=== PATIENT | male | born 1970 | race Caucasian/White ===

== ENCOUNTER 2023-08-16 08:53 | Outpatient (CLI) | payer BC, SELFPAY ==
--- OUTSIDE RECORDS SUMMARY | 2023-08-16 08:58 | XMS_ITS | Referral Summary ---
Author Organization Kathleen Address [address] [place] [id number] Care Team Providers Care [employer] Name Role Phone Harry Baird MD Primary Care Provider Cedric Asencio MD Unavailable Anne Oglesby MD Unavailable [phone] Prabhu Ivory MD Unavailable Anne Oglesby MD Unavailable Encounters Date Type Department Care Team Description 07/15/2023 Travel 07/15/2023 8:30 AM CDT Lab [facility] [address] [place] [phone] Kidney donor 06/23/2023 MyC Medical Advice [facility] [address] [place] [phone] Naida Lawler 06/02/2023 MyC Medical Advice [facility] [address] [place] [phone] Kalee Zavaleta LPN 05/24/2023 MyC Medical Advice [facility] [address] [place] [phone] Daily Briceño RN from Last 3 Months Allergies No known active allergies Medications Medication Sig Dispensed Refills Start Date End Date Status albuterol (PROAIR HFA, PROVENTIL HFA, VENTOLIN HFA) 108 (90 BASE) MCG/ACT inhalerIndications: Asthma, moderate persistent, uncomplicated Use 2 puffs before exercise and every 4-6 hours as needed for wheezing and shortness of breath 1 Inhaler 3 12/09/2014 Active Additional Information Patient not taking.Reported on 09/13/2022 fluticasone-salmete rol (ADVAIR) 250-50 MCG/ACT inhaler Inhale 1 puff into the lungs every 12 hours Active acetaminophen (TYLENOL) 325 MG tabletIndications:E ncounter for donation of kidney Take 2 tablets (650 mg) by mouth every 6 hours as needed for mild pain 100 tablet 07/27/2022 Active Additional Information Patient not taking.Reported on 09/13/2022 oxyCODONE (ROXICODONE) 5 MG tabletIndications:E ncounter for donation of kidney Take 1-2 tablets (5-10 mg) by mouth every 4 hours as needed for moderate pain 24 tablet 07/27/2022 Active Additional Information Patient not taking.Reported on 09/13/2022 senna-docusate (SENOKOT-S/PERICOLA CE) 8.6-50 MG tabletIndications:E ncounter for donation of kidney Take 1-2 tablets by mouth 2 times daily 60 tablet 1 07/27/2022 Active Additional Information Patient not taking.Reported on 11/24/2022 polyethylene glycol (MIRALAX) 17 GM/Dose powderIndications:E ncounter for donation of kidney Take 17 g by mouth daily 510 g 1 07/27/2022 Active Additional Information Patient not taking.Reported on 09/13/2022 magnesium hydroxide (MILK OF MAGNESIA) 400 MG/5ML suspensionIndicatio ns:Encounter for donation of kidney Take 30 mLs by mouth daily as needed for constipation 118 mL 1 07/27/2022 Active Additional Information Patient not taking.Reported on 09/13/2022 augmented betamethasone dipropionate (DIPROLENE AF) 0.05 % external creamIndications:Salvatore cheung donor Apply topically 2 times daily 50 g 1 08/06/2022 Active Additional Information Patient not taking.Reported on 09/13/2022 pantoprazole (PROTONIX) 20 MG EC tabletIndications:K naz donor Take 2 tablets (40 mg) by mouth daily 1 tablet 3 08/17/2022 Active Additional Information Patient not taking.Reported on 09/13/2022 benzonatate (TESSALON) 200 MG capsuleIndications: Acute cough Take 1 capsule (200 mg) by mouth 3 times daily as needed for cough 30 capsule 11/24/2022 Active Active Problems Patient Care Coordination No te Formatting of this note migh t be different from the original. January 05, 2022 4:29 PM - Lourdes Arroyo RN: Patient's abdominal CT reviewed on 01/05/22 with the following surgeon(s) present: Lisa Suggested side for kidney for donation is RIGHT or choice. Incidental findings reviewed: none Problem Noted Date Diagnosed Date Encounter for donation of kidney 07/26/2022 Transplant donor evaluation 12/15/2021 Uncomplicated asthma 12/09/2014 Overview: Diagnosis updated by automated process. Provider to review and confirm. Gastroesophageal reflux disease without esophagi tis 12/09/2014 CARDIOVASCULAR SCREENING; LDL GOAL LESS THAN 160 10/25/2014 Resolved Problems Problem Noted Date Diagnosed Date Resolved Date Mild persistent asthma without complication 10/25/2014 12/09/2014 Overview: Diagnosis updated by automated process. Provider to review and confirm. Asthma 10/04/2014 10/25/2014 Overview: Problem list name updated by automated process. Provider to review Immunizations Name Administration Dates Next Due COVID-19 MONOVALENT 12+ (Pfizer) 02/23/2021,04/0 11/2020,05/23/2020 COVID-19 Monovalent 12+ (Pfizer 2021) 10/12/2021 Influenza Vaccine >6 months,quad, PF 12/27/2013 Pneumococcal 23 valent 10/25/2014 Social History Tobacco Use Types Packs/Day Years Used Date Smoking Tobacco: Never Smokeless Tobacco: Never Tobacco Cessation:Counseling Given: Not Answered Alcohol Use Standard Drinks/Week Comments Yes 1 (1 standard drink = 0.6 oz pur e alcohol) PHQ-2 Answer Date Recorded PHQ-2 Score 0 07/15/2022 Adolescent Education Answer Date Record ed Getting School Help Needed Not on file 11/26 Sex and Gender Information Value Date Recorded Sex Assigned at Male 12/15/2021 10:56 PM CDT Gender Identity Male 12/15/2021 10:56 PM CDT Sexual Orientation Straight 12/15/2021 10 :56 PM CDT Last Filed Vital Signs Vital Sign Reading Time Taken Comments Blood Pressure 120/71 11/24/2022 5:07 PM CDT Pulse 78 11/24/2022 5:07 PM CDT Temperature 38.2 ??C (100.7 ??F) 11/24/2022 5:07 PM C DT Respiratory Rate 20 11/24/2022 5:07 PM CDT Oxygen Saturation 98% 11/24/2022 5:07 PM CDT Inhaled Oxygen Concentration - - Weight 98.9 kg (218 lb) 01/15/2023 12:00 PM INSTRUCTIONAL TECHNOLOGY COORDINATOR Height 188 cm (6' 2) 01/15/2023 12:00 PM INSTRUCTIONAL TECHNOLOGY COORDINATOR Body Mass Index 27.99 01/15/2023 12:00 PM INSTRUCTIONAL TECHNOLOGY COORDINATOR Plan of Treatment Not on file Procedures Procedure Name Priority Date/Time Associated Diagnosis Comments URINE MICROSCOPIC EXAM Routine 07/15/2023 8:38 AM CDT Kidney donor ROUTINE UA WITH MICROSCOPIC Routine 07/15/2023 8:38 AM CDT Kidney donor ALBUMIN RANDOM URINE QUANTITATIVE Routine 07/15/2023 8:32 AM CDT Kidney donor PROTEIN RANDOM URINE Routine 07/15/2023 8:32 AM CDT Kidney donor CREATININE Routine 07/15/2023 8:29 AM CDT Kidney donor CYSTATIN C WITH GFR Routine 07/15/2023 8 :29 AM CDT Kidney donor BASIC METABOLIC PANEL Routine 09/13/2022 3:16 PM CDT Kidney donor HIV 1&2 ANTIBODY (EXTERNAL RESULT) Routine 07/05/2022 2:16 PM CDT HEPATITIS C ANTIBODY Routine 07/05/2022 2:16 PM CDT LIPID PROFILE Routine 12/31/2021 7:32 AM CDT Transplant donor evaluation COLONOSCOPY - HIM SCAN 05/01/2021 12:00 AM INSTRUCTIONAL TECHNOLOGY COORDINATOR from Last 3 Months or Most Recently Relevant to Health Maintenance Results * UA with Microscopic (07/15/2023 8:38 AM CDT) Color Urine Yellow Colorless, Straw, Light Yellow, Yellow 07/15/2023 8:40 AM CDT LABORATORY Appearance Urine Clear Clear 07/15/19 24 8:40 AM CDT LABORATORY Glucose Urine Negative Negative mg/dL 07/15/2023 8:40 AM CDT LABORATORY Bilirubin Urine Negative Negative 8:40 AM CDT LABORATORY Ketones Urine Negative Negative mg/dL 07/15/2023 8:40 AM CDT LABORATORY Specific [place] Urine 1.015 1.003 - 1.035 07/15/2023 8:40 AM CDT LABORATORY Blood Urine Negative Negative 07/15/2023 8:40 AM CDT LABORATORY pH Urine 6.0 5.0 - 7.0 07/15/2023 8:40 AM CDT LABORATORY Protein Albumin Urine Negative Negative mg/dL 07/15/2023 8:40 AM CDT LABORATORY Urobilinogen Urine 0.2 0.2, 1.0 E.U./dL 07/15/2023 8:40 AM CDT LABORATORY Nitrite Urine Negative Negative 07/15/2023 8:40 AM CDT LABORATORY Leukocyte Esterase Urine Negative Negative 07/15/2023 8:40 AM CDT LABORATORY Urine URINE SPECIMEN OBTAINED BY CLEAN CATCH PROCEDURE / Unknown Non-blood Collection / Unknown 07/15/2023 8:38 AM CDT 07/15/2023 8:38 AM CDT Prabhu Ivory MD LAB - URINE ORDERABL ES LABORATORY [facility] [place] [facility] [address] [facility] (no room number, 1st floor of clinic) [place] [address], [facility] * (ABNORMAL) Urine Microscopic Exam (07/15/2023 8:38 AM CDT) RBC Urine 0-2 0-2 /HPF /HPF CHRISTOPHER 07/15/2023 8:44 AM CDT RM LABORATORY WBC Urine 0-5 0-5 /HPF /HPF CHRISTOPHER 07/15/2023 8:44 AM CDT LABORATORY Squamous Epithelials Urine Few(A) None Seen /LPF CHRISTOPHER 07/15/2023 8:44 AM CDT LABORATORY Urine URINE SPECIMEN OBTAINED BY CLEAN CATCH PROCEDURE / Unknown Non-blood Collection / Unknown 07/15/2023 8:38 AM CDT 07/15/2023 8:38 AM CDT Prabhu Ivory MD LAB - URINE ORDERABL ES LABORATORY [facility] [place] [facility] [address] [facility] (no room number, 1st floor of clinic) [place] [address] * Protein random urine (07/15/2023 8:32 AM CDT) Total Protein Urine mg/dL 6.5 mg/dL 07/15/2023 10:40 PM CDT [facility] Comment:The reference ranges have not been established in urine protein. The results should be integrated into the clinical context for interpretation. Total Protein Urine mg/mg Creat 0.07 0.00 - 0.20 mg/mg Cr 07/15/2023 10:40 PM CDT [facility] Creatinine Urine mg/dL 87.5 mg/dL 07/15/2023 10:40 PM CDT [facility] Comment:The reference ranges have not been established in urine creatinine. The results should be integrated into the clinical context for interpretation. Urine URINE SPECIMEN / Unknown Non-blood Collection / Unknown 07/15/2023 8:32 AM CDT 07/15/2023 8:32 AM CDT Prabhu Ivory MD LAB - URINE ORDERABL ES [facility] LABORATORY [facility] [place] [facility] [address] [facility], [address] [place] [address], [facility] * Albumin Random Urine Quantitative with Creat Ratio (07/15/2023 8:32 AM CDT) Creatinine Urine mg/dL 87.5 mg/dL 07/15/2023 10:55 PM CDT [facility] Comment:The reference ranges have not been established in urine creatinine. The results should be integrated into the clinical context for interpretation. Albumin Urine mg/L <12.0 mg/L 2023 10:55 PM CDT [facility] Comment:The reference ranges have not been established in urine albumin. The results should be integrated into the clinical context for interpretation. Albumin Urine mg/g Cr 07/15/2023 10:55 PM CDT [facility] Comment: Unable to calculate, urine albumin and/or urine creatinine is outside detectable limits. Microalbuminuria is defined as an albumin:creatinine ratio of 17 to 299 for males and 25 to 299 for females. A ratio of albumin:creatinine of 300 or higher is indicative of overt proteinuria. Due to biologic variability, positive results should be confirmed by a second, first-morning random or 24-hour timed urine specimen. If there is discrepancy, a third specimen is recommended. When 2 out of 3 results are in the microalbuminuria range, this is evidence for incipient nephropathy and warrants increased efforts at glucose control, blood pressure control, and institution of therapy with an xgyubdqiqar-atfwxyquhx-wjatiw (MELISSA) inhibitor (if the patient can tolerate it). ?? Urine URINE SPECIMEN / Unknown Non-blood Collection / Unknown 07/15/2023 8:32 AM CDT 07/15/2023 8:32 AM CDT Prabhu Ivory MD LAB - URINE ORDERABL ES [facility]U LABORATORY [facility] Core Lab [address] [facility], [address] [place] [address] * (ABNORMAL) Cystatin C with GFR (07/15/2023 8:29 AM CDT) Cystatin C 1.3(H) 0.6 - 1.0 mg/L 07/15/2023 10:53 PM CDT [facility] GFR Calculated with Cystatin C 57(L) >=60 mL/min/1.7 3m2 07/15/2023 10:53 PM CDT [facility] Blood BLOOD SPECIMEN / Unknown Venipuncture / Unknown 07/15/2023 8:29 AM CDT 07/15/2023 8:29 AM CDT Narrative [facility] - 07/15/2023 10:53 PM CDT eGFRcys in adults is calculated using the 2012 CKD-EPI cystatin c equation which includes age and gender (Mackenzie et al., NEJ, DOI: 10.1056/YHYTqb8943391) Prabhu Ivory MD LAB - BLOOD ORDERABL ES Performing Organization Address [facility] Co de Phone Number U LABORATORY [facility] [place] [facility] [address] [facility], [address] * (ABNORMAL) Creatinine (07/15/2023 8:29 AM CDT) Creatinine 1.90(H) 0.67 - 1.17 mg/dL 07/15/2023 10:53 PM CDT [facility] GFR Estimate 42(L) >60 mL/min/1.7 3m2 07/15/2023 10:53 PM CDT [facility] Blood BLOOD SPECIMEN / Unknown Venipuncture / Unknown 07/15/2023 8:29 AM CDT 07/15/2023 8:29 AM CDT Prabhu Ivory MD LAB - BLOOD ORDERABL ES Performing Organization Address [facility]/ZIP Co de Phone Number U LABORATORY [facility] [place] [facility] [address] [facility], [address] * (ABNORMAL) Basic metabolic panel (09/13/2022 3:16 PM CDT) Sodium 136 136 - 145 mmol/L 09/13/2022 4:16 PM CDT [facility] - [facility]ORE LAB Potassium 4.3 3.4 - 5.3 mmol/L 09/13/2022 4:16 PM CDT [facility] - CORE LAB Chloride 101 98 - 107 mmol/L 09/13/2022 4:16 PM CDT [facility] - CORE LAB Carbon Dioxide (CO2) 25 22 - 29 mmol/L 09/13/2022 4:16 PM CDT [facility] - CORE LAB Anion Gap 10 7 - 15 mmol/L 09/13/2022 4:16 PM CDT [facility] - CORE LAB Urea Nitrogen 24.7(H) 6.0 - 20.0 mg/dL 09/13/2022 4:16 PM CDT [facility] - CORE LAB Creatinine 2.03(H) 0.67 - 1.17 mg/dL 09/13/2022 4:16 PM CDT [facility] - CORE LAB Calcium 9.2 8.6 - 10.0 mg/dL 09/13/2022 4:16 PM CDT [facility] - CORE LAB Glucose 103(H) 70 - 99 mg/dL 09/13/2022 4:16 PM CDT [facility] - CORE LAB GFR Estimate 39(L) >60 mL/min/1.7 3m2 09/13/2022 4:16 PM CDT [facility] - CORE LAB Blood STRUCTURE OF RIGHT UPPER LIMB / Unknown Venipuncture / Unknown 09/13/2022 3:16 PM CDT 09/13/2022 3:16 PM CDT Anne Oglesby MD LAB - BLOOD ORDERABL ES [facility] - CORE LAB [facility] [address] [facility] 1st [place] [address] * HIV-1 Antibody (External Result) (07/05/2022 2:16 PM CDT) HIV 1&2 Antibody (External) Non Reactive Non Reactive [facility] 07/05/2022 2:16 PM CDT Narrative MABEL PFT - 07/07/2022 4:31 PM CDT Verified by Tona Pacheco on 07/07/2022. Provider Outside LAB - HIM EXTERNAL R ESULT MABEL PFAmparo [facility] [address] [place], [place] [id number] [place] [address] * Hepatitis C antibody (07/05/2022 2:16 PM CDT) Hepatitis C Antibody (External) Non Reactive Non Reactive [facility] Blood BLOOD SPECIMEN / Unknown 07/05/2022 2:16 PM CDT Narrative MABEL PFT - 07/07/2022 4:31 PM CDT Verified by Tona Pacheco on 07/07/2022. Provider Outside LAB - BLOOD ORDERABL ES MABEL PFT [facility] [address] [place] [address], [facility] * Lipid Profile (12/31/2021 7:32 AM CDT) Cholesterol 126 <200 mg/dL 12/31/2021 11:58 AM CDT [facility] Triglycerides 52 <150 mg/dL 12/31/2021 11:58 AM CDT [facility] Direct Measure HDL 52 >=40 mg/dL 2021 11:58 AM CDT [facility] LDL Cholesterol Calculated 64 <=100 mg/dL 12/31/2021 11:58 AM CDT [facility] Non HDL Cholesterol 74 <130 mg/dL 12/31/2021 11:58 AM CDT [facility] Blood STRUCTURE OF RIGHT UPPER LIMB / Unknown Venipuncture / Unknown 12/31/2021 7:32 AM CDT 12/31/2021 7:38 AM CDT Narrative [facility] - 12/31/2021 11:58 AM CDT Cholesterol Desirable: ??<200 mg/dL Triglycerides Normal: ??Less than 150 mg/dL Borderline High: ??150-199 mg/dL High: ??200-499 mg/dL Very High: ??Greater than or equal to 500 mg/dL Direct Measure HDL Female: ??Greater than or equal to 50 mg/dL Male: ??Greater than or equal to 40 mg/dL LDL Cholesterol Desirable: ??<100mg/dL Above Desirable: ??100-129 mg/dL Borderline High: ??130-159 mg/dL High: ??160-189 mg/dL Very High: ??>= 190 mg/dL Non HDL Cholesterol Desirable: ??130 mg/dL Above Desirable: ??130-159 mg/dL Borderline High: ??160-189 mg/dL High: ??190-219 mg/dL Very High: ??Greater than or equal to 220 mg/dL Rafat Marquez MD LAB - BLOOD ORDERABL ES LABORATORY [facility] Core Lab [address] [facility] [address] [facility], [address] [place] [address], [facility] [phone] * COLONOSCOPY - HIM SCAN (05/01/2021 12:00 AM INSTRUCTIONAL TECHNOLOGY COORDINATOR) 05/01/2021 Provider Outside PROCEDURES from Last 3 Months or Most Recently Relevant to Health Maintenance Advance Directives For more information, please contact: [phone] * Full Code (Latest Code Status on File) Date Activated Date Inactivated Comments 07/26/2022 12:11 PM 07/27/2022 3:19 PM All basic a nd advanced life-sustaining interventions are performed as appropriate Question Answer Comments Code status determined by: Discussion with patie nt/ legal decision maker Care Teams [employer] Relationship Specialty Start Date End Date Harry Baird MD [facility] [address] [place] [address] PCP - General Emergency Medicine 12/04/21 Cedric Asencio MD [address] [address] Urology 01/08/22 Anne Oglesby MD [address] [facility] [address] [place], [place] [address] Surgery 06/30/22 Prabhu Ivory MD [address] [place] [address] [address] [place], [place] [id number] Assigned Nephrology Provider 07/24/22 Anne Oglesby MD [address] [facility] [address] [place], [place] [address] Assigned Surgical Provider 10/23/22
--- OUTSIDE RECORDS SUMMARY | 2023-08-16 08:58 | XMS_ITS | Clinical Summary ---
Author Organization [facility] Address [address] [place] [address] Care Team Providers Care Dairy Feed Worker Name Role Phone Harry Baird MD Primary Care Provider Cedric Asencio MD Unavailable Anne Oglesby MD Unavailable [phone] Prabhu Ivory MD Unavailable Anne Oglesby MD Unavailable [phone] Allergies No known active allergies Medications Medication [...] betamethasone dipropionate (DIPROLENE AF) 0.05 % external creamIndications:Ki dncelio donor Apply topically 2 times daily 50 g 1 08/06/2022 Active Additional Information Patient not taking.Reported on 09/13/2022 pantoprazole (PROTONIX) 20 MG EC tabletIndications:Dwaine childs donor Take 2 tablets (40 mg) by [...] updated by automated process. Provider to review Encounters Date Type Department Care Team Description 07/15/2023 8:30 AM CDT Lab [facility] [address] [place] [address] Kidney donor 07/15/2023 Travel 06/23/2023 MyC Medical Advice [facility] [address] [place] [address] [phone] Naida Lawler 06/02/2023 MyC Medical Advice [facility] [address] [place] [address] [phone] Kalee Zavaleta LPN 05/24/2023 MyC Medical Advice [facility] [address] [place] [address] [phone] Daily Briceño RN from Last 3 Months Immunizations Name Administration Dates Next Due COVID-19 MONOVALENT 12+ (Pfizer) 02/23/2021,04/0 11/2020,05/23/2020 COVID-19 Monovalent 12+ (Pfizer 2021) 10/12/2021 Influenza Vaccine >6 months,quad, PF 12/27/2013 Pneumococcal 23 valent 10/25/2014 Family History Medical History Relation Comments Kidney Disease Father ckd Lung Cancer Mother Hypertension Son Kidney Disease Son Liver Disease Son s/p liver transp lant Diabetes No family hx of Relation Status Comments Father Mother Son Alive Social History Tobacco Use Types Packs/Day Years [...] 98.9 kg (218 lb) 01/15/2023 12:00 PM PRECAST MOLDER Height 188 cm (6' 2) 01/15/2023 12:00 PM PRECAST MOLDER Body Mass Index 27.99 01/15/2023 12:00 PM PRECAST MOLDER Plan of Treatment Health Maintenance Due Date Last Done Comments ADVANCE CARE PLANNING 1970 ANNUAL REVIEW OF HM ORDERS 1970 ASTHMA ACTION PLAN 1970 CT COLONOGRAPHY 1970 FIT 1970 FLEX SIG 1970 YEARLY PREVENTIVE VISIT 1970 sDNA (Cologuard) 1970 HEPATITIS B IMMUNIZATION (1 of 3 - 19+ 3-dose series) 1989 ASTHMA CONTROL TEST 06/10/2015 12/09/2014, 5 Pneumococcal Vaccine: Pediatrics (0 to 5 Years) and At-Risk Patients (6 to 64 Years) (2 of 2 - PCV) 06/23/2019 06/22/2018, 10/25/2014 ZOSTER IMMUNIZATION (1 of 2) 2020 PHQ-2 (once per calendar year) 2023 07/15/2022, 12/31/2021, 12/09/2014, Additional history exists GLUCOSE 09/13/2025 09/13/2022, 07/06, 07/15/2022, Additional history exists DTAP/TDAP/TD IMMUNIZATION (2 - Td or Tdap) 12/03/2025 12/04/2015, 08/12/1997 LIPID 12/31/2026 12/31/2021, 02/25/2021 COLONOSCOPY 05/01/2031 05/01/2021, 04/08, 03/06/2021 COLORECTAL CANCER SCREENING 05/01/2031 HEPATITIS C SCREENING Completed 07/05/2022, 022 HIV SCREENING Completed 07/05/2022, 05/0 03/2022, 12/31/2021 COVID-19 Vaccine Completed 12/08/2022, , 10/12/2021, Additional history exists INFLUENZA VACCINE Completed 12/08/2022, , 12/19/2020, Additional history exists HPV IMMUNIZATION Aged Out No longer e ligible based on patient's age to complete this topic IPV IMMUNIZATION Aged Out No longer e ligible based on patient's age to complete this topic MENINGITIS IMMUNIZATION Aged Out No l onger eligible based on patient's age to complete this topic RSV MONOCLONAL ANTIBODY Aged Out No l onger eligible based on patient's age to complete this topic Procedures Procedure Name Priority Date/Time Associated Diagnosis [...] COLONOSCOPY - HIM SCAN 05/01/2021 12:00 AM PRECAST MOLDER from Last 3 Months or Most Recently Relevant to Health Maintenance Results * UA with Microscopic (07/15/2023 8:38 AM CDT) Color Urine Yellow Colorless, Straw, Light Yellow, Yellow 07/15/2023 8:40 AM CDT LABORATORY Appearance Urine Clear Clear 07/15/19 8:40 AM CDT LABORATORY Glucose Urine Negative Negative mg/dL 07/15/2023 8:40 AM CDT LABORATORY Bilirubin Urine Negative Negative 8:40 AM CDT LABORATORY Ketones Urine Negative Negative mg/dL 07/15/2023 8:40 AM CDT LABORATORY Specific [place] Urine 1.015 1.003 - 1.035 07/15/2023 8:40 [...] MD LAB - URINE ORDERABL ES LABORATORY [facility] [address] [facility] Lab (no room number, 1st floor of clinic) [place] [address], [facility] * (ABNORMAL) Urine Microscopic Exam (07/15/2023 8:38 AM CDT) RBC Urine 0-2 0-2 /HPF /HPF CHRISTOPHER 07/15/2023 8:44 AM CDT RM LABORATORY WBC Urine 0-5 0-5 /HPF /HPF CHRISTOPHER 07/15/2023 8:44 AM CDT RM LABORATORY Squamous Epithelials Urine Few(A) None Seen /LPF CHRISTOPHER 07/15/2023 8:44 AM CDT LABORATORY Urine URINE SPECIMEN OBTAINED BY CLEAN CATCH PROCEDURE / Unknown Non-blood Collection / Unknown 07/15/2023 8:38 AM CDT 07/15/2023 8:38 AM CDT Prabhu Ivory MD LAB - URINE ORDERABL ES LABORATORY [facility] [place] [facility] [address] [facility] (no room number, 1st floor of clinic) [place] [address], [facility] * Protein random urine (07/15/2023 8:32 AM [...] LAB - URINE ORDERABL ES UU LABORATORY [facility] [place] [facility] [address] [facility], [address] [place] [phone] * Albumin Random Urine Quantitative with [...] control, and institution of therapy with an ryivdyyernt-qprkgtzydz-aazpsd (MELISSA) inhibitor (if the patient can tolerate it). ?? Urine URINE SPECIMEN / Unknown Non-blood Collection / Unknown 07/15/2023 8:32 AM CDT 07/15/2023 8:32 AM CDT Prabhu Ivory MD LAB - URINE ORDERABL ES UU LABORATORY [facility] Core Lab [address] [facility], [address] [place] [phone] * (ABNORMAL) Cystatin C with GFR [...] and gender (Mackenzie et al., NEJ, DOI: [id number]) Prabhu Ivory MD LAB - BLOOD ORDERABL ES U LABORATORY [facility] [place] [facility] [address] [facility], [facility] [address] * (ABNORMAL) Creatinine (07/15/2023 8:29 AM CDT) Creatinine 1.90(H) 0.67 - 1.17 mg/dL 07/15/2023 10:53 PM CDT UU LABORATORY GFR Estimate 42(L) >60 mL/min/1.7 3m2 07/15/2023 10:53 PM CDT UU LABORATORY Blood BLOOD SPECIMEN / Unknown Venipuncture / Unknown 07/15/2023 8:29 AM CDT 07/15/2023 8:29 AM CDT Prabhu Ivory MD LAB - BLOOD ORDERABL ES U LABORATORY [facility] [place] [facility] [address] [facility], [address] * (ABNORMAL) Basic metabolic panel (09/13/2022 3:16 PM CDT) Sodium 136 136 - 145 mmol/L 09/13/2022 4:16 PM CDT [facility] - CORE LAB Potassium 4.3 3.4 - 5.3 mmol/L 09/13/2022 4:16 PM CDT [facility] - CORE LAB Chloride 101 98 - 107 mmol/L 09/13/2022 4:16 PM CDT [facility] - CORE LAB Carbon Dioxide (CO2) 25 22 - 29 mmol/L 09/13/2022 4:16 PM CDT [facility] - CORE LAB Anion Gap 10 7 - 15 mmol/L 09/13/2022 4:16 PM CDT [facility] - CORE LAB Urea Nitrogen 24.7(H) 6.0 - 20.0 mg/dL 09/13/2022 4:16 PM CDT [facility] - CORE LAB Creatinine 2.03(H) 0.67 - 1.17 mg/dL 09/13/2022 4:16 PM CDT [facility] - CORE LAB Calcium 9.2 8.6 - 10.0 mg/dL 09/13/2022 4:16 PM CDT [facility] - CORE LAB Glucose 103(H) 70 - 99 mg/dL 09/13/2022 4:16 PM CDT [facility] - CORE LAB GFR Estimate 39(L) >60 mL/min/1.7 3m2 09/13/2022 4:16 PM CDT [facility] - CORE LAB Blood STRUCTURE OF RIGHT UPPER LIMB / Unknown Venipuncture / Unknown 09/13/2022 3:16 PM CDT 09/13/2022 3:16 PM CDT Anne Oglesby MD LAB - BLOOD ORDERABL ES [facility] - CORE LAB [address] 1st [place] [address] * HIV-1 Antibody (External Result) (07/05/2022 2:16 PM CDT) HIV 1&2 Antibody (External) Non Reactive Non Reactive [facility] 07/05/2022 2:16 PM CDT Narrative MABEL PFT - 07/07/2022 4:31 PM CDT Verified by Tona Pacheco on 07/07/2022. Provider Outside LAB - HIM EXTERNAL R ESULT [facility] PFT [facility] [address] * Hepatitis C antibody (07/05/2022 2:16 PM CDT) Hepatitis C Antibody (External) Non Reactive Non Reactive [facility]RL [facility] Blood BLOOD SPECIMEN / Unknown 07/05/2022 2:16 PM CDT Narrative BREEZE PFT - 07/07/2022 4:31 PM CDT Verified by Tona Pacheco on 07/07/2022. Provider Outside LAB - BLOOD ORDERABL ES [facility] [address] * Lipid Profile (12/31/2021 7:32 AM CDT) [...] MD LAB - BLOOD ORDERABL ES LABORATORY [facility] Core Lab [address] [facility], [address] [place] [address], [facility] [phone] * COLONOSCOPY - HIM SCAN (05/01/2021 12:00 AM PRECAST MOLDER) 05/01/2021 Provider Outside PROCEDURES from Last 3 Months or Most Recently Relevant to Health Maintenance Advance Directives For more information, please contact: [phone] * Full Code (Latest Code Status on File) Date Activated Date Inactivated Comments 07/26/2022 12:11 PM 07/27/2022 3:19 PM All basic a nd advanced life-sustaining interventions are performed as appropriate Question Answer Comments Code status determined by: Discussion with shannan nt/ legal decision maker Care Teams Dairy Feed Worker Relationship Specialty Start Date End Date Harry Baidr MD [facility] [address] [place] [address] PCP - General Emergency Medicine 12/04/21 Cedric Asencio MD [address] [facility] 377 [place] [address] Urology 01/08/22 Anne Oglesby MD [address] [facility] 2[address] [place], [place] [address] Surgery 06/30/22 Prabhu Ivory MD 717 [facility] 353 [place], [place] 9[address] Assigned Nephrology Provider 07/24/22 Anne Oglesby MD [address] [facility] [address] [place] [address] Assigned Surgical Provider 10/23/22
--- OUTSIDE RECORDS SUMMARY | 2023-08-16 08:59 | XMS_ITS | Encounter Summary ---
Author Organization [facility] Address [address] [place] [address]. [place] [address] Care Team Providers Care Azure Developer Name Role Phone Harry Baird MD Primary Care Provider Cedric Asencio MD Unavailable Anne Oglesby MD Unavailable [phone] Prabhu Ivory MD Unavailable Anne Oglesby MD Unavailable [phone] Encounter Details Date Type Department Care Team (Late st Contact Info) Description 06/23/2023 [facility] [address] [place] [phone] Naida Lawler Social History Tobacco Use Types Packs/Day Years Used Date Smoking Tobacco: Never Smokeless Tobacco: Never Alcohol Use Standard Drinks/Week Comments Yes 1 [...] Orientation Straight 12/15/2021 10 :56 PM CDT documented as of this encounter Plan of Treatment Not on file documented as of this encounter Visit Diagnoses Not on filedocumented in this encounter Care Teams Azure Developer Relationship Specialty Start Date End Date Harry Baird MD [facility] [address] [place] [address] PCP - General Emergency Medicine 12/04/21 Cedric Asencio MD [address] [facility] 377 [place] [address] Urology 01/08/22 Anne Oglesby MD 516 [facility] 2[address] [place], [place] [address] Surgery 06/30/22 Prabhu Ivory MD 717 [facility] 353 [place], [place] [address] Assigned Nephrology Provider 07/24/22 Anne Oglesby MD [address] [facility] [address] [place] [address] Assigned Surgical Provider 10/23/22 documented as of this encounter
--- OUTSIDE RECORDS SUMMARY | 2023-08-16 08:59 | XMS_ITS | Encounter Summary ---
Author Organization [place] Address [address] [place] [address]. [place] [address] Care Team Providers Care Cordage Sales Representative Name Role Phone Harry Baird MD Primary Care Provider Cedric Asencio MD Unavailable [phone] Armani Wiley MD Unavailable Mushtaq Arias MD Unavailable [phone] Anne Oglesby MD Unavailable [phone] Anais Monroe NP Unavailable [phone] Prabhu Ivory MD Unavailable Anne Oglesby MD Unavailable [phone] Reason for Visit * Reason Onset Date Comments Appointment 01/11/2022 Encounter Details Date Type Department Care Team (Late st Contact Info) Description 01/11/2022 Telephone [facility] [address] [place] [address] Cedric Asencio MD [address] [facility] [place] [address] Appointment Social History Tobacco Use Types Packs/Day Years Used Date Smoking Tobacco: Never Smokeless Tobacco: Never Alcohol Use Standard Drinks/Week Comments Yes 1 (1 standard drink = 0.6 oz pur e alcohol) PHQ-2 Answer Date Recorded PHQ-2 Score 0 12/31/2021 Sex and Gender Information Value Date Recorded Sex Assigned at Male 12/15/2021 10:56 PM CDT Gender Identity Male 12/15/2021 10:56 PM CDT Sexual Orientation Straight 12/15/2021 10 :56 PM CDT COVID-19 Exposure Response Date Recorded In the last 10 days, have yo u been in contact with someone who was confirmed or suspected to have Coronavirus/COVID-19? No / Unsure 12/31/2021 6:56 AM CDT documented as of this encounter Miscellaneous Notes * Telephone Encounter - Kinza Dan - 01/11/2022 8:31 AM CSTFormatting of this note might be different from the [facility]. Health Call Center Phone Message May a detailed message be left on voicemail: yes Reason for Call: Appointment Intake [place], with the [facility] transplant office called requesting a call back. She is wondering if patient can be seen sooner. He is under going potential kidney donor for his teenage son. This is the lastpiece he needs to do. Please call Lourdes to advise. Action Taken: Other: Urology Travel Screening: Not Applicable N END WORKER documented in this encounter Plan of Treatment Not on file documented as of this encounter Visit Diagnoses Not on filedocumented in this encounter Additional Health Concerns Infection Onset Date Last Indicated Resolved Time Rule Out COVID-19 11/24/2022 11/24/2022 11/25/2022 1:25 PM CDT documented as of this encounter Care Teams Cordage Sales Representative Relationship Specialty Start Date End Date Harry Baird MD [facility] [address] [place] [address] PCP - General Emergency Medicine 12/04/21 Cedric Asencio MD [address] [address] Urology 01/08/22 Armani Wiley MD 420 [facility] 195 [place] [address] Assigned Surgical Provider 01/09/22 07/09/22 Mushtaq Arias MD 717 [facility] 353 [facility] [address] [place] [address] Assigned Nephrology Provider 01/09/22 07/23/22 Anne Oglesby MD [address] [place] [address] [address] [place], [place] [address] Surgery 06/30/22 Anais Monroe, PSYCHIATRIC SECURITY NURSE 909 [place] [address] Assigned Surgical Provider 07/10/22 10/22/22 Prabhu Ivory MD 717 [facility] 353 [place] [address] Assigned Nephrology Provider 07/24/22 Anne Oglesby MD [address] [place] [address] [address] [place] [address] Assigned Surgical Provider 10/23/22 documented as of this encounter
--- OUTSIDE RECORDS SUMMARY | 2023-08-16 08:59 | XMS_ITS | Encounter Summary ---
Author Organization [place] Address [address] [place] [address]. [place] [address] Care Team Providers Care Apartment Community Manager Name Role Phone Harry Baird MD Primary Care Provider Cedric Asencio MD Unavailable [phone] Anne Oglesby MD Unavailable Prabhu Ivory MD Unavailable Anne Oglesby MD Unavailable [phone] Encounter Details Date Type Department Care Team (Late st Contact Info) Description 05/24/2023 [facility] [address] [place] [phone] Daily Briceño, KRISTI Social History Tobacco Use Types Packs/Day Years [...] on filedocumented in this encounter Care Teams Apartment Community Manager Relationship Specialty Start Date End Date Harry Baird MD [facility] [address] [place] [address] PCP - General Emergency Medicine 12/04/21 Cedric Asencio MD [address] [address] Urology 01/08/22 Anne Oglesby MD 516 [facility] 2A [place], [place] [id number] Surgery 06/30/22 Prabhu Ivory MD 717 [facility] 353 [place] [address] Assigned Nephrology Provider 07/24/22 Anne Oglesby MD 516 [facility] 2A [place] [address] Assigned Surgical Provider 10/23/22 documented as of this encounter
--- OUTSIDE RECORDS SUMMARY | 2023-08-16 08:59 | XMS_ITS | Encounter Summary ---
Author Organization [facility] Address [address] [place] [address]. [address] Care Team Providers Care Online Advertising Analyst Name Role Phone Harry Baird MD Primary Care Provider Cedric Asencio MD Unavailable [phone] Anne Oglesby MD Unavailable [phone] Anais Monroe NP Unavailable Prabhu Ivory MD Unavailable Anne Oglesby MD Unavailable [phone] Encounter Details Date Type Department Care Team (Late st Contact Info) Description 08/02/2022 [facility] [address] [place] [phone] Alise Paula, RN Social History Tobacco Use Types Packs/Day Years Used Date Smoking Tobacco: Never Smokeless Tobacco: Never Alcohol Use Standard Drinks/Week Comments Yes 1 (1 standard drink = 0.6 oz pur e alcohol) PHQ-2 Answer Date Recorded PHQ-2 Score 0 07/15/2022 Sex and Gender Information Value Date Recorded Sex Assigned at Male 12/15/2021 10:56 PM CDT Gender Identity Male 12/15/2021 10:56 PM CDT Sexual Orientation Straight 12/15/2021 10 :56 PM CDT COVID-19 Exposure Response Date Recorded In the last 10 days, have yo u been in contact with someone who was confirmed or suspected to have Coronavirus/COVID-19? No / Unsure 07/26/2022 5:04 AM CDT documented as of this encounter Plan of Treatment Not on file documented as of this encounter Visit Diagnoses Not on filedocumented in this encounter Additional Health Concerns Infection Onset Date Last Indicated Resolved Time Rule Out COVID-19 11/24/2022 11/24/2022 11/25/2022 1:25 PM CDT documented as of this encounter Care Teams Online Advertising Analyst Relationship Specialty Start Date End Date Harry Baird MD [facility] [address] [place] [address] PCP - General Emergency Medicine 12/04/21 Cedric Asencio MD [address] [address] Urology 01/08/22 Anne Oglesby MD [address] [place] [address] Surgery 06/30/22 Anais Monroe, PHOTONICS ENGINEERING TECHNICIAN 9 [place] [address] Assigned Surgical Provider 07/10/22 10/22/22 Prabhu Ivory MD [address] [place] [address] Assigned Nephrology Provider 07/24/22 Anne Oglesby MD [address] [place] [address] Assigned Surgical Provider 10/23/22 documented as of this encounter
--- OUTSIDE RECORDS SUMMARY | 2023-08-16 08:59 | XMS_ITS | Encounter Summary ---
Author Organization [place] Address [address] [place] [address]. [place] [address] Care Team Providers Care Supervising Editor Trailer Name Role Phone Harry Baird MD Primary Care Provider Cedric Asencio MD Unavailable Anne Oglesby MD Unavailable [phone] Prabhu Ivory MD Unavailable Anne Oglesby MD Unavailable [phone] Encounter Details Date Type Department Care Team (Late st Contact Info) Description 06/02/2023 [facility] [address] [place] [phone] Kalee Zavaleta LPN Social History Tobacco Use Types Packs/Day Years [...] on filedocumented in this encounter Care Teams Supervising Editor Trailer Relationship Specialty Start Date End Date Harry Baird MD [facility] 2000 [place] [address] PCP - General Emergency Medicine 12/04/21 Cedric Asencio MD [address] [facility] 377 [place] [address] Urology 01/08/22 Anne Oglesby MD 516 [facility] 2A [place], [place] [address] Surgery 06/30/22 Prabhu Ivory MD 717 [facility] 353 [place], [place] [address] Assigned Nephrology Provider 07/24/22 Anne Oglesby MD 516 [facility] 2A [place] [address] Assigned Surgical Provider 10/23/22 documented as of this encounter
--- OUTSIDE RECORDS SUMMARY | 2023-08-16 08:59 | XMS_ITS | Encounter Summary ---
Author Organization [facility] Address [address] [place] [address]. [place] [address] Care Team Providers Care Patent Prosecution Paralegal Name Role Phone Harry Baird MD Primary Care Provider Cedric Asencio MD Unavailable [phone] Armani Wiley MD Unavailable Mushtaq Arias MD Unavailable [phone] Anne Oglesby MD Unavailable [phone] Anais Monroe NP Unavailable [phone] Prabhu Ivory MD Unavailable Anne Oglesby MD Unavailable [phone] Encounter Details Date Type Department Care Team (Late st Contact Info) Description 05/27/2022 [facility] [address] [place] [phone] Daily Briceño, KRISTI Social History Tobacco [...] documented as of this encounter Care Teams Patent Prosecution Paralegal Relationship Specialty Start Date End Date Harry Baird MD [facility] 1999 [place] [address] PCP - General Emergency Medicine 12/04/21 Cedric Asencio MD [address] [address] Urology 01/08/22 Armani Wiley MD [address] [place] [address] 195 [place], [place] [address] Assigned Surgical Provider 01/09/22 07/09/22 Mushtaq Arias MD [address] [place] [address] 1932 [place], [place] [address] Assigned Nephrology Provider 01/09/22 07/23/22 Anne Oglesby MD [address] [place] [id number] Surgery 06/30/22 Anais Monroe QUALITY ASSURANCE/R&D LAB TECHNICIAN 909 [place], [place] [address] Assigned Surgical Provider 07/10/22 10/22/22 Prabhu Ivory MD [address] [place] [address] Assigned Nephrology Provider 07/24/22 Anne Oglesby MD 6 [facility] 2A [place] [address] Assigned Surgical Provider 10/23/22 documented as of this encounter
--- OUTSIDE RECORDS SUMMARY | 2023-08-16 08:59 | XMS_ITS | Encounter Summary ---
Author Organization [facility] Address [address] [place] [address]. [place] [address] Care Team Providers Care Die Sinker Apprentice Name Role Phone Harry Baird MD Primary Care Provider Cedric Asencio MD Unavailable [phone] Armani Wiley MD Unavailable Mushtaq Arias MD Unavailable [phone] Anne Oglesby MD Unavailable [phone] Anais Monroe NP Unavailable [phone] Prabhu Ivory MD Unavailable Anne Oglesby MD Unavailable [phone] Encounter Details Date Type Department Care Team (Late st Contact Info) Description 05/18/2022 [facility] Trans[facility] Clinic [address] [place] [address] Daily Briceño, KRISTI Social History Tobacco [...] documented as of this encounter Care Teams Die Sinker Apprentice Relationship Specialty Start Date End Date Harry Baird MD [facility] 1999 [place] [address] PCP - General Emergency Medicine 12/04/21 Cedric Asencio MD [address] [address] Urology 01/08/22 Armani Wiley MD [address] [place] [address] 195 [place], [place] 37[address]85 Assigned Surgical Provider 01/09/22 07/09/22 Mushtaq Arias MD [address] [place] [place] [address] 1932 [place], [place] 29[address]24 Assigned Nephrology Provider 01/09/22 07/23/22 Anne Oglesby MD [address] [place] [id number] Surgery 06/30/22 Anais Monroe [employer] 909 [place], [place] 5[address]75 Assigned Surgical Provider 07/10/22 10/22/22 Prabhu Ivory MD [address] [place] [address] Assigned Nephrology Provider 07/24/22 Anne Oglesby MD 6 [facility] 2A [place] [address] Assigned Surgical Provider 10/23/22 documented as of this encounter
--- OUTSIDE RECORDS SUMMARY | 2023-08-16 08:59 | XMS_ITS | Encounter Summary ---
Author Organization [place] Address [address] [place] [address] Care Team Providers Care Bobbin Disker Name Role Phone Harry Baird MD Primary Care Provider Cedric Asencio MD Unavailable [phone] Armani Wiley MD Unavailable Mushtaq Arias MD Unavailable [phone] Anne Oglesby MD Unavailable [phone] Anais Monroe NP Unavailable [phone] Prabhu Ivory MD Unavailable Anne Oglesby MD Unavailable [phone] Encounter Details Date Type Department Care Team (Late st Contact Info) Description 01/08/2022 [facility] Medical Advice Initial Department Lourdes Arroyo RN Social History Tobacco Use Types Packs/Day [...] documented as of this encounter Care Teams Bobbin Disker Relationship Specialty Start Date End Date Harry Baird MD [facility] 1999 [place] [address] PCP - General Emergency Medicine 12/04/21 Cedric Asencio MD [address] [address] Urology 01/08/22 Armani Wiley MD 420 [facility] 195 [place], [place] [address] Assigned Surgical Provider 01/09/22 07/09/22 Mushtaq Arias MD 717 [facility] 353 [facility] 1932 [place], [place] [id number] Assigned Nephrology Provider 01/09/22 07/23/22 Anne Oglesby MD 516 [facility] 2A [place], [place] [id number] Surgery 06/30/22 Anais Monroe, FUNDRAISING SPECIALIST 909 [place], [place] 174835 Assigned Surgical Provider 07/10/22 10/22/22 Prabhu Ivory MD 717 [facility] 353 [place] [address] Assigned Nephrology Provider 07/24/22 Anne Oglesby MD 516 [facility] 2A [place] [address] Assigned Surgical Provider 10/23/22 documented as of this encounter
--- OUTSIDE RECORDS SUMMARY | 2023-08-16 08:59 | XMS_ITS | Encounter Summary ---
Author Organization [place] Address [address] [place] [address]. [place] [address] Care Team Providers Care Sap Security Consultant Name Role Phone Harry Baird MD Primary Care Provider Cedric Asencio MD Unavailable Armani Wiley MD Unavailable Mushtaq Arias MD Unavailable [phone] Anne Oglesby MD Unavailable [phone] Anais Monroe NP Unavailable [phone] Prabhu Ivory MD Unavailable Anne Oglesby MD Unavailable [phone] Encounter Details Date Type Department Care Team (Late st Contact Info) Description 06/25/2022 [facility] Trans[facility] Clinic [address] [place] [address] Daily Briceño, KRISTI Social History Tobacco [...] documented as of this encounter Care Teams Sap Security Consultant Relationship Specialty Start Date End Date Harry Baird MD [facility] 1999 [place] [address] PCP - General Emergency Medicine 12/04/21 Cedric Asencio MD [address] [address] Urology 01/08/22 Armani Wiley MD [address] [place] [address] 195 [place], [place] 598415 Assigned Surgical Provider 01/09/22 07/09/22 Mushtaq Arias MD [address] [place] [address] 1932 [place], [place] 0[address]364 Assigned Nephrology Provider 01/09/22 07/23/22 Anne Oglesby MD [address] [place] [address] Surgery 06/30/22 Anais Monroe HAND ALTERATIONS TAILOR 909 [place], [place] 12[address]85 Assigned Surgical Provider 07/10/22 10/22/22 Prabhu Ivory MD [address] [place] [address] Assigned Nephrology Provider 07/24/22 Anne Oglesby MD 6 [facility] 2A [place] [address] Assigned Surgical Provider 10/23/22 documented as of this encounter
--- OUTSIDE RECORDS SUMMARY | 2023-08-16 08:59 | XMS_ITS | Encounter Summary ---
Author Organization [place] Address [address] [place] [address]. [place] [address] Care Team Providers Care Cloth Folder Hand Name Role Phone Harry Baird MD Primary Care Provider Cedric Asencio MD Unavailable Armani Wiley MD Unavailable Mushtaq Arias MD Unavailable [phone] Anne Oglesby MD Unavailable [phone] Anais Monroe NP Unavailable [phone] Prabhu Ivory MD Unavailable Anne Oglesby MD Unavailable [phone] Encounter Details Date Type Department Care Team (Late st Contact Info) Description 12/21/2021 Documentation Only [facility] Health Information Management [address] [place] [address] 180 [place] [address] Scan, Non-Provider Social History Tobacco Use Types Packs/Day Years Used Date Smoking Tobacco: Never Smokeless Tobacco: Never Alcohol Use Standard Drinks/Week Comments Yes 0 (1 standard drink = 0.6 oz pur e alcohol) Sex and Gender Information Value Date Recorded Sex Assigned at Male 12/15/2021 10:56 PM CDT Gender Identity Male 12/15/2021 10:56 PM CDT Sexual Orientation Straight 12/15/2021 10 :56 PM CDT COVID-19 Exposure Response Date Recorded In the last 10 days, have yo u been in contact with someone who was confirmed or suspected to have Coronavirus/COVID-19? No / Unsure 12/24/2021 10:33 PM CDT documented as of this encounter Plan of Treatment Not on file documented as of this encounter Visit Diagnoses Not on filedocumented in this encounter Additional Health Concerns Infection Onset Date Last Indicated Resolved Time Rule Out COVID-19 11/24/2022 11/24/2022 11/25/2022 1:25 PM CDT documented as of this encounter Care Teams Cloth Folder Hand Relationship Specialty Start Date End Date Harry Baird MD [facility] 1999 [place] [address] PCP - General Emergency Medicine 12/04/21 Cedric Asencio MD [address] [address] Urology 01/08/22 Armani Wiley MD 420 [facility] 195 [place], [place] [address] Assigned Surgical Provider 01/09/22 07/09/22 Mushtaq Arias MD 717 [facility] 353 [facility] 1932 [place], [place] [address] Assigned Nephrology Provider 01/09/22 07/23/22 Anne Oglesby MD 516 [facility] 2A [place], [place] [address] Surgery 06/30/22 Anais Monroe, RECONCILIATION SPECIALIST 909 [place], [place] 67[address] Assigned Surgical Provider 07/10/22 10/22/22 Prabhu Ivory MD 717 [facility] 353 [place] [address] Assigned Nephrology Provider 07/24/22 Anne Oglesby MD 516 [facility] 2A [place] [address] Assigned Surgical Provider 10/23/22 documented as of this encounter
--- OUTSIDE RECORDS SUMMARY | 2023-08-16 08:59 | XMS_ITS | Encounter Summary ---
Author Organization [place] Address [address] [place] [address]. [place] [address] Care Team Providers Care Preschool Lead Teacher Name Role Phone Harry Baird MD Primary Care Provider Cedric Asencio MD Unavailable Anne Oglesby MD Unavailable [phone] Prabhu Ivory MD Unavailable Anne Oglesby MD Unavailable [phone] Encounter Details Date Type Department Care Team (Late st Contact Info) Description 01/18/2023 Telephone [facility] 909 [place] [address] Naida Lawler Social History Tobacco Use [...] PM CDT documented as of this encounter Miscellaneous Notes * Telephone Encounter - Naida Lawler - 01/18/2023 1:22 PM CST Called patient about the organ survey and/or lab orders mailed to them. Left message for patient tocall the Solid Organ Transplant Team back at [phone] if they have any questions about the survey or labs needed or if they would like to complete the survey over the phone. BINDING FOLDER documented in this encounter Plan of Treatment Not on file documented as of this encounter Visit Diagnoses Not on filedocumented in this encounter Care Teams Preschool Lead Teacher Relationship Specialty Start Date End Date Harry Baird MD [facility] 1999 [place] [address] PCP - General Emergency Medicine 12/04/21 Cedric Asencio MD 305 E [facility] 377 [place] [address] Urology 01/08/22 Anne Oglesby MD [address] [place] [address] 2A [place], [place] [address] Surgery 06/30/22 Prabhu Ivory MD 717 [facility] 353 [place] [address] Assigned Nephrology Provider 07/24/22 Anne Oglesby MD 6 [facility] 2A [place], [place] [address] Assigned Surgical Provider 10/23/22 documented as of this encounter
--- OUTSIDE RECORDS SUMMARY | 2023-08-16 08:59 | XMS_ITS | Encounter Summary ---
Author Organization [facility] Address [address] [place] [address] Care Team Providers Care Product Scientist Name Role Phone Harry Baird MD Primary Care Provider Cedric Asencio MD Unavailable Armani Wiley MD Unavailable Mushtaq Arias MD Unavailable [phone] Anne Oglesby MD Unavailable [phone] Anais Monroe NP Unavailable [phone] Prabhu Ivory MD Unavailable Anne Oglesby MD Unavailable [phone] Encounter Details Date Type Department Care [...] documented as of this encounter Care Teams Product Scientist Relationship Specialty Start Date End Date Harry Baird MD [facility] 1999 [place] [address] PCP - General Emergency Medicine 12/04/21 Cedric Asencio MD [address] [address] Urology 01/08/22 Armani Wiley MD 420 [facility] 195 [place], [place] [address] Assigned Surgical Provider 01/09/22 07/09/22 Mushtaq Arias MD 717 [facility] 353 [facility] 1932 [place], [place] [address] Assigned Nephrology Provider 01/09/22 07/23/22 Anne Oglesby MD 516 [facility] 2A [place], [place] [id number] Surgery 06/30/22 Anais Monroe, LOGISTICS MANAGEMENT SPECIALIST 909 [place], [place] [address] Assigned Surgical Provider 07/10/22 10/22/22 Prabhu Ivory MD 717 [facility] 353 [place] [address] Assigned Nephrology Provider 07/24/22 Anne Oglesby MD 516 [facility] 2A [place] [address] Assigned Surgical Provider 10/23/22 documented as of this encounter
--- OUTSIDE RECORDS SUMMARY | 2023-08-16 08:59 | XMS_ITS | Encounter Summary ---
Author Organization [place] Address [address] [place] [address]. [place] [address] Care Team Providers Care Chemical Engraver Name Role Phone Harry Baird MD Primary Care Provider Cedric Asencio MD Unavailable Armani Wiley MD Unavailable Mushtaq Arias MD Unavailable [phone] Anne Oglesby MD Unavailable [phone] Anais Monroe NP Unavailable [phone] Prabhu Ivory MD Unavailable Anne Oglesby MD Unavailable [phone] Encounter Details Date Type Department Care Team (Late st Contact Info) Description 07/05/2022 External Order Results [facility] 420 [place] [address] Outside, Provider Transplant donor evaluation Social History Tobacco Use Types Packs/Day Years [...] Recorded In the last 10 days, have tommy u been in contact with someone who was confirmed or suspected to have Coronavirus/COVID-19? No / Unsure 07/05/2022 1:57 PM CDT documented as of this encounter Plan of Treatment Not on file documented as of this encounter Procedures Procedure Name Priority Date/Time Associated Diagnosis Comments CYSTATIN C WITH GFR STAT 07/09/2022 1 :14 PM CDT Transplant donor evaluation BASIC METABOLIC PANEL STAT 07/09/2022 1:14 PM CDT Transplant donor evaluation HIV 1&2 ANTIBODY (EXTERNAL RESULT) Routine 07/05/2022 2:16 PM CDT HEPATITIS B SURFACE ANTIBODY Routine 07/05/2022 2:16 PM CDT EBV CAPSID ANTIBODY IGG Routine 07/05/2022 2:16 PM CDT CMV ANTIBODY IGG Routine 07/05/2022 2:16 PM CDT HBV HCV HIV WNV BY NATHALY Routine 07/05/2022 2:16 PM CDT HEPATITIS C ANTIBODY Routine 07/05/2022 2:16 PM CDT HEPATITIS B SURFACE ANTIGEN Routine 07/05/2022 2:16 PM CDT HEPATITIS B CORE ANTIBODY Routine 07/05/2022 2:16 PM CDT documented in this encounter Results * (ABNORMAL) Basic metabolic panel (07/09/2022 1:14 PM CDT) Sodium 141 136 - 145 mmol/L 07/09/2022 1:50 PM CDT [facility] Potassium 4.5 3.4 - 5.3 mmol/L 07/09/2022 1:50 PM CDT [facility] Chloride 105 98 - 107 mmol/L 07/09/2022 1:50 PM CDT [facility] Carbon Dioxide (CO2) 28 22 - 29 mmol/L 07/09/2022 1:50 PM CDT [facility] Anion Gap 8 7 - 15 mmol/L 07/09/2022 1:50 PM CDT [facility] Urea Nitrogen 15.7 6.0 - 20.0 mg/dL 07/09/2022 1:50 PM CDT [facility] Creatinine 1.38(H) 0.67 - 1.17 mg/dL 07/09/2022 1:50 PM CDT [facility] Calcium 9.6 8.6 - 10.0 mg/dL 07/09/2022 1:50 PM CDT [facility] Glucose 101(H) 70 - 99 mg/dL 07/09/2022 1:50 PM CDT [facility] GFR Estimate 62 >60 mL/min/1.7 3m2 07/09/2022 1:50 PM CDT [facility] Comment:eGFR calculated usin g 2020 CKD-EPI equation. Blood BLOOD SPECIMEN / Unknown Venipuncture / Unknown 07/09/2022 1:14 PM CDT 07/09/2022 1:18 PM CDT Anne Oglesby MD LAB - BLOOD ORDERABL ES [facility] [address] [facility], [address] [place] [address], [facility] [phone] * Cystatin C with GFR (07/09/2022 1:14 PM CDT) Cystatin C 1.0 0.6 - 1.0 mg/L 07/09/2022 4:27 PM CDT [facility] GFR Calculated with Cystatin C 81 >=60 mL/min/1.7 3m2 07/09/2022 4:27 PM CDT [facility] Blood BLOOD SPECIMEN / Unknown Venipuncture / Unknown 07/09/2022 1:14 PM CDT 07/09/2022 1:18 PM CDT Narrative [facility] - 07/09/2022 4:27 PM CDT eGFRcys in adults is calculated using the 2012 CKD-EPI cystatin c equation which includes age and gender (Mackenzie et al., NEJM, DOI: 10.1056/CHICao6377698) Anne Oglesby MD LAB - BLOOD ORDERABL ES [facility] 500 [facility] [address] [facility], [address] [place] [address], [facility] [phone] * HBV HCV HIV WNV by NATHALY (07/05/2022 2:16 PM CDT) HEPATITIS B BY NATHALY Non Reactive Non Reactive [facility] HCV by NATHALY Non Reactive Non Reactive VRL EUROFIN S HIV By Nathaly Non Reactive Non Reactive VRL EUROF[facility] S West Nile Virus By NATHALY Non Reactive Non Reactive [facility] Blood 07/05/2022 2:16 PM CDT Narrative [facility] - 07/07/2022 4:31 PM CDT Verified by Tona Pacheco on 07/07/2022. Provider Outside LAB - BLOOD ORDERABL ES Performing Organization Address City/[facility]/ZIP Co de Phone Number [facility] [address] [place] [address], [facility] * HIV-1 Antibody (External Result) (07/05/2022 2:16 PM CDT) HIV 1&2 Antibody (External) Non Reactive Non Reactive [facility] 07/05/2022 2:16 PM CDT Narrative [facility] - 07/07/2022 4:31 PM CDT Verified by Tona Pacheco on 07/07/2022. Provider Outside LAB - HIM EXTERNAL R ESULT [facility] [address] * Hepatitis C antibody (07/05/2022 2:16 PM CDT) Hepatitis C Antibody (External) Non Reactive Non Reactive [facility] Blood BLOOD SPECIMEN / Unknown 07/05/2022 2:16 PM CDT Narrative [facility] - 07/07/2022 4:31 PM CDT Verified by Tona Pacheco on 07/07/2022. Provider Outside LAB - BLOOD ORDERABL ES [facility] [address] [place] [address] * Hepatitis B surface antigen (07/05/2022 2:16 PM CDT) Hep B Surface Agn (External) Non Reactive Non Reactive [facility] Blood BLOOD SPECIMEN / Unknown 07/05/2022 2:16 PM CDT Narrative [facility] - 07/07/2022 4:31 PM CDT Verified by Tona Pacheco on 07/07/2022. Provider Outside LAB - BLOOD ORDERABL ES Performing Organization Address [facility] Co de Phone Number [facility] [address] [place] [address] * Hepatitis B Surface Antibody (07/05/2022 2:16 PM CDT) Hep B Surface Al[place] (External) Non Reactive Non Reactive [facility] Blood BLOOD SPECIMEN / Unknown 07/05/2022 2:16 PM CDT Narrative [facility] - 07/07/2022 4:31 PM CDT Verified by Tona Pacheco on 07/07/2022. Provider Outside LAB - BLOOD ORDERABL ES [facility] [address] [place] [address] * Hepatitis B core antibody (07/05/2022 2:16 PM CDT) Hepatitis B Core Alona (External) Non Reactive Non Reactive [facility] Blood BLOOD SPECIMEN / Unknown 07/05/2022 2:16 PM CDT Narrative [facility] - 07/07/2022 4:31 PM CDT Verified by Tona Pacheco on 07/07/2022. Provider Outside LAB - BLOOD ORDERABL ES Performing Organization Address [facility]/ZIP Co de Phone Number [facility] [address] * CMV Antibody IgG (07/05/2022 2:16 PM CDT) CMV IgG Antibody (External) Negative Negative [facility] Blood 07/05/2022 2:16 PM CDT Narrative [facility] - 07/07/2022 4:31 PM CDT Verified by Tona Pacheco on 07/07/2022. Provider Outside LAB - BLOOD ORDERABL ES Performing Organization Address [facility] Co de Phone Number [facility] [address] * (ABNORMAL) EBV Capsid Antibody IgG (07/05/2022 2:16 PM CDT) EBV VCA IgG Antibody (External) Positive(A ) Negative [facility] Blood 07/05/2022 2:16 PM CDT Narrative [facility] - 07/07/2022 4:31 PM CDT Verified by Tona Pacheco on 07/07/2022. Provider Outside LAB - BLOOD ORDERABL ES Performing Organization Address [facility] Co de Phone Number [facility] [address] [place] [address] documented in this encounter Visit Diagnoses Diagnosis Transplant donor evaluation Other specified general medical examination documented in this encounter Additional Health Concerns Infection Onset Date Last Indicated Resolved Time Rule Out COVID-19 11/24/2022 11/24/2022 11/25/2022 1:25 PM CDT documented as of this encounter Care Teams Chemical Engraver Relationship Specialty Start Date End Date Reister, Mcdonald Edson, MD [facility] 1999 [place] [address] PCP - General Emergency Medicine 12/04/21 Cedric Asencio MD 305 [address] [facility] 377 [place] [address] Urology 01/08/22 Armani Wiley MD [address] [place] [address] 195 [place], [place] [address] Assigned Surgical Provider 01/09/22 07/09/22 Mushtaq Arias MD 717 [facility] 353 [facility] 1932 [place] [address] Assigned Nephrology Provider 01/09/22 07/23/22 Anne Oglesby MD [address] [place] [address] 2A [place], [place] [address] Surgery 06/30/22 Anais Monroe, SHEET METAL FORMER 909 [place], [place] [address] Assigned Surgical Provider 07/10/22 10/22/22 Prabhu Ivory MD 717 [facility] 353 [place], [place] [address] Assigned Nephrology Provider 07/24/22 Anne Oglesby MD 6 [facility] 2A [place], [place] [address] Assigned Surgical Provider 10/23/22 documented as of this encounter
--- OUTSIDE RECORDS SUMMARY | 2023-08-16 08:59 | XMS_ITS | Encounter Summary ---
Author Organization [place] Address [address] [place] [address]. [place] [address] Care Team Providers Care Care Transition Manager Name Role Phone Harry Baird MD Primary Care Provider Cedric Asencio MD Unavailable [phone] Anne Oglesby MD Unavailable [phone] Prabhu Ivory MD Unavailable Anne Oglesby MD Unavailable [phone] Encounter Details Date Type Department Care Team (Late st Contact Info) Description 07/15/2023 8:[address] [facility] Laboratory [address] [place] [address] Kidney donor Social History Tobacco Use Types Packs/Day Years [...] Procedure Name Priority Date/Time Associated Diagnosis Comments ROUTINE UA WITH MICROSCOPIC Routine 07/15/2023 8:38 AM CDT Kidney donor URINE MICROSCOPIC EXAM Routine 07/15/2023 8:38 AM CDT Kidney donor PROTEIN RANDOM URINE Routine 07/15/2023 8:32 AM CDT Kidney donor ALBUMIN RANDOM URINE QUANTITATIVE Routine 07/15/2023 8:32 AM CDT Kidney donor CYSTATIN C WITH GFR Routine 07/15/2023 8 :29 AM CDT Kidney donor CREATININE Routine 07/15/2023 8:29 AM CDT Kidney donor documented in this encounter Results * (ABNORMAL) Urine Microscopic Exam (07/15/2023 8:38 [...] MD LAB - URINE ORDERABL ES LABORATORY [facility] [place] [facility] [address] [facility] (no room number, 1st floor of clinic) [place] [address], [facility] * UA with Microscopic (07/15/2023 8:38 AM CDT) Color Urine Yellow Colorless, Straw, Light Yellow, Yellow 07/15/2023 8:40 AM CDT RM LABORATORY Appearance Urine Clear Clear 07/15/19 24 8:40 AM CDT LABORATORY Glucose Urine Negative Negative mg/dL 07/15/2023 8:40 AM CDT LABORATORY Bilirubin Urine Negative Negative 8:40 AM CDT LABORATORY Ketones Urine Negative Negative mg/dL 07/15/2023 8:40 AM CDT LABORATORY Specific [place] Urine 1.015 1.003 - 1.035 07/15/2023 8:40 [...] MD LAB - URINE ORDERABL ES LABORATORY [facility] [place] [facility] [address] [facility] Lab (no room number, 1st floor of clinic) [place] [address], [facility] * Albumin Random Urine Quantitative [...] control, and institution of therapy with an iextfsgtjlj-oamfibzvis-mibblb (MELISSA) inhibitor (if the patient can tolerate it). ?? Urine URINE SPECIMEN / Unknown Non-blood Collection / Unknown 07/15/2023 8:32 AM CDT 07/15/2023 8:32 AM CDT Prabhu Ivory MD LAB - URINE ORDERABL ES [facility] LABORATORY [facility] Core Lab [address] [facility], Room [address] [place] [id number] [[email or web address] * Protein random urine (07/15/2023 8:32 AM [...] Ivory MD LAB - URINE ORDERABL ES Performing Organization Address City/[facility]/ZIP Co de Phone Number UU LABORATORY [facility] [place] Core Lab [address] [facility], Room [address] * (ABNORMAL) Creatinine (07/15/2023 8:29 AM CDT) Creatinine 1.90(H) 0.67 - 1.17 mg/dL 07/15/2023 10:53 PM CDT UU LABORATORY GFR Estimate 42(L) >60 mL/min/1.7 3m2 07/15/2023 10:53 PM CDT UU LABORATORY Blood BLOOD SPECIMEN / Unknown Venipuncture / Unknown 07/15/2023 8:29 AM CDT 07/15/2023 8:29 AM CDT Prabhu Ivory MD LAB - BLOOD ORDERABL ES Performing Organization Address [facility] Co de Phone Number U LABORATORY [facility] [place] Core Lab [address] [facility], Room [address] * (ABNORMAL) Cystatin C with GFR (07/15/2023 [...] and gender (Mackenzie et al., NEJM, DOI: 10.1056/[id number]) Prabhu Ivory MD LAB - BLOOD ORDERABL ES [facility] LABORATORY [facility] [place] [facility] Lab 500 [facility], Room [address] [place] [address], [facility] documented in this encounter Visit Diagnoses Diagnosis Kidney donor documented in this encounter Care Teams Care Transition Manager Relationship Specialty Start Date End Date Harry Baird MD [facility] 2000 [place] [address] PCP - General Emergency Medicine 12/04/21 Cedric Asencio MD 305 [address] [facility] 377 [place] [address] Urology 01/08/22 Anne Oglesby MD 516 [facility] 2A [place] [address] Surgery 06/30/22 Prabhu Ivory MD 717 [facility] 353 [place] [address] Assigned Nephrology Provider 07/24/22 Anne Oglesby MD 516 [facility] 2A [place] [address] Assigned Surgical Provider 10/23/22 documented as of this encounter
--- OUTSIDE RECORDS SUMMARY | 2023-08-16 08:59 | XMS_ITS | Encounter Summary ---
Author Organization [place] Address [address] [place] [address]. [place] [address] Care Team Providers Care Automotive Machinist Name Role Phone Harry Baird MD Primary Care Provider Cedric Asencio MD Unavailable Anne Oglesby MD Unavailable [phone] Prabhu Ivory MD Unavailable Anne Oglesby MD Unavailable [phone] Encounter Details Date Type Department Care Team (Late st Contact Info) Description 12/22/2022 [facility] [address] [place] [address] Niada Lawler Social History Tobacco Use Types Packs/Day [...] suspected to have Coronavirus/COVID-19? No / Unsure 11/24/2022 4:53 PM CDT documented as of this encounter Plan of Treatment Not on file documented as of this encounter Visit Diagnoses Not on filedocumented in this encounter Care Teams Automotive Machinist Relationship Specialty Start Date End Date Harry Baird MD [facility] 1999 [place] [address] PCP - General Emergency Medicine 12/04/21 Cedric Asencio MD [address] [address] Urology 01/08/22 Anne Oglesby MD 6 [facility] 2A [place], [place] [address] Surgery 06/30/22 Prabhu Ivory MD [address] [address] Assigned Nephrology Provider 07/24/22 Anne Oglesby MD 516 [facility] 2A [place], [place] [address] Assigned Surgical Provider 10/23/22 documented as of this encounter
--- OUTSIDE RECORDS SUMMARY | 2023-08-16 08:59 | XMS_ITS | Encounter Summary ---
Author Organization [place] Address [address] [place] [address]. [place] [address] Care Team Providers Care Nuclear Medicine Tech Name Role Phone Harry Baird MD Primary Care Provider Cedric Asencio MD Unavailable [phone] Anne Oglesby MD Unavailable [phone] Prabhu Ivory MD Unavailable Anne Oglesby MD Unavailable [phone] Encounter Details Date Type Department Care Team (Latest Contact Info) Description 07/15/2023 Travel Social History Tobacco Use Types Packs/Day Years [...] on filedocumented in this encounter Care Teams Nuclear Medicine Tech Relationship Specialty Start Date End Date Harry Baird MD [facility] 1999 [place] [address] PCP - General Emergency Medicine 12/04/21 Cedric Asencio MD 305 [address] [facility] 377 [place] [address] Urology 01/08/22 Anne Oglesby MD 6 [facility] 2A [place] [address] Surgery 06/30/22 Prabhu Ivory MD 717 [facility] 353 [place] [address] Assigned Nephrology Provider 07/24/22 Anne Oglesby MD 6 [facility] 2A [place] [address] Assigned Surgical Provider 10/23/22 documented as of this encounter
--- OUTSIDE RECORDS SUMMARY | 2023-08-16 08:59 | XMS_ITS | Encounter Summary ---
Author Organization [place] Address [address] [place] [address]. [place] [address] Care Team Providers Care Fondant Machine Operator Name Role Phone Harry Baird MD Primary Care Provider Cedric Asencio MD Unavailable Armani Wiley MD Unavailable Mushtaq Arias MD Unavailable [phone] Anne Oglesby MD Unavailable [phone] Anais Monroe NP Unavailable [phone] Prabhu Ivory MD Unavailable Anne Oglesby MD Unavailable [phone] Encounter Details Date Type Department Care Team (Late st Contact Info) Description 02/18/2022 Documentation Only [facility] Health Information Management 1690 [facility] 180 [place] [address] Scan, Non-Provider Social History Tobacco Use Types [...] suspected to have Coronavirus/COVID-19? No / Unsure 01/27/2022 3:13 PM OSTOMY RN documented as of this encounter Plan of Treatment Not on file documented as of this encounter Visit Diagnoses Not on filedocumented in this encounter Additional Health Concerns Infection Onset Date Last Indicated Resolved Time Rule Out COVID-19 11/24/2022 11/24/2022 11/25/2022 1:25 PM CDT documented as of this encounter Care Teams Fondant Machine Operator Relationship Specialty Start Date End Date Harry Baird MD [facility] 2000 [place] [address] PCP - General Emergency Medicine 12/04/21 Cedric Asencio MD 305 [address] [facility] 377 [place], [place] [address] Urology 01/08/22 Armani Wiley MD 420 [facility] 195 [place] [address] Assigned Surgical Provider 01/09/22 07/09/22 Mushtaq Arias MD 717 [facility] 353 [facility] 1932 [place], [place] [address] Assigned Nephrology Provider 01/09/22 07/23/22 Anne Oglesby MD 516 [facility] 2A [place] [address] Surgery 06/30/22 Anais Monroe JANITORIAL TECH 909 [place], [place] [address] Assigned Surgical Provider 07/10/22 10/22/22 Prabhu Ivory MD 717 [facility] 353 [place] [address] Assigned Nephrology Provider 07/24/22 Anne Oglesby MD 516 [facility] 2A [place] [address] Assigned Surgical Provider 10/23/22 documented as of this encounter
--- OUTSIDE RECORDS SUMMARY | 2023-08-16 08:59 | XMS_ITS | Encounter Summary ---
Author Organization [place] Address [address] [place] [address] Care Team Providers Care Medical Doctor Md Name Role Phone Harry Baird MD Primary Care Provider Cedric Asencio MD Unavailable [phone] Armani Wiley MD Unavailable Mushtaq Arias MD Unavailable [phone] Anne Oglesby MD Unavailable [phone] Anais Monroe NP Unavailable [phone] Prabhu Ivory MD Unavailable Anne Oglesby MD Unavailable [phone] Encounter Details Date Type Department Care Team (Late st Contact Info) Description 01/26/2022 MyC Medical Advice Initial Department Lourdse Arroyo RN Social History Tobacco Use Types [...] Coronavirus/COVID-19? No / Unsure 01/27/2022 3:13 PM MINER PLACER documented as of this encounter Plan of Treatment Not on file documented as of this encounter Visit Diagnoses Not on filedocumented in this encounter Additional Health Concerns Infection Onset Date Last Indicated Resolved Time Rule Out COVID-19 11/24/2022 11/24/2022 11/25/2022 1:25 PM CDT documented as of this encounter Care Teams Medical Doctor Md Relationship Specialty Start Date End Date Harry Baird MD [facility] 1999 [place] [address] PCP - General Emergency Medicine 12/04/21 Cedric Asencio MD [address] [address] Urology 01/08/22 Armani Wiley MD 420 [facility] 195 [place], [place] [address] Assigned Surgical Provider 01/09/22 07/09/22 Mushtaq Arias MD 717 [facility] 353 [facility] 1932 [place], [place] [address] Assigned Nephrology Provider 01/09/22 07/23/22 Anne Oglesby MD 516 [facility] 2A [place], [place] [address] Surgery 06/30/22 Anais Monroe, SURVEILLANCE MANAGER 909 [place], [place] [address] Assigned Surgical Provider 07/10/22 10/22/22 Prabhu Ivory MD 717 [facility] 353 [place] [address] Assigned Nephrology Provider 07/24/22 Anne Oglesby MD 516 [facility] 2A [place] [address] Assigned Surgical Provider 10/23/22 documented as of this encounter
--- OUTSIDE RECORDS SUMMARY | 2023-08-16 08:59 | XMS_ITS | Encounter Summary ---
Author Organization [place] Address [address] [place] [address]. [place] [address] Care Team Providers Care Signs Sales Representative Name Role Phone Harry Baird MD Primary Care Provider Cedric Asencio MD Unavailable [phone] Anne Oglesby MD Unavailable [phone] Prabhu Ivory MD Unavailable Anne Oglesby MD Unavailable [phone] Encounter Details Date Type Department Care Team (Late st Contact Info) Description 01/19/2023 Documentation Only [facility] Transplant Clinic [address] [place] [address] Naida Lawler Social History Tobacco [...] PM CDT documented as of this encounter Last Filed Vital Signs Vital Sign Reading Time Taken Comments Blood Pressure - - Pulse - - Temperature - - Respiratory Rate - - Oxygen Saturation - - Inhaled Oxygen Concentration - - Weight 98.9 kg (218 lb) 01/15/2023 12:00 PM BATTERY TESTER AND REPAIRER Height 188 cm (6' 2) 01/15/2023 12:00 PM BATTERY TESTER AND REPAIRER Body Mass Index 27.99 01/15/2023 12:00 PM BATTERY TESTER AND REPAIRER documented in this encounter Plan of Treatment Not on file documented as of this encounter Visit Diagnoses Not on filedocumented in this encounter Care Teams Signs Sales Representative Relationship Specialty Start Date End Date Harry Baird MD [facility] 1999 [place] [address] PCP - General Emergency Medicine 12/04/21 Cedric Asencio MD [address] [address] Urology 01/08/22 Anne Oglesby MD [address] [place] [address] 2A [place] [address] Surgery 06/30/22 Prabhu Ivory MD [address] [place] [address] Assigned Nephrology Provider 07/24/22 Anne Oglesby MD [address] [place] [address] 2A [place] [address] Assigned Surgical Provider 10/23/22 documented as of this encounter
--- OUTSIDE RECORDS SUMMARY | 2023-08-16 08:59 | XMS_ITS | Encounter Summary ---
Author Organization [place] Address [address] [place] [address]. [place] [address] Care Team Providers Care Bricklayer Tender Name Role Phone Harry Baird MD Primary Care Provider Cedric Asencio MD Unavailable Armani Wiley MD Unavailable Mushtaq Arias MD Unavailable [phone] Anne Oglesby MD Unavailable [phone] Anais Monroe NP Unavailable [phone] Prabhu Ivory MD Unavailable Anne Oglesby MD Unavailable [phone] Encounter Details Date Type Department Care Team (Late st Contact Info) Description 03/19/2022 [facility] [address] [place] [address] Daily Briceño, KRISTI Social History Tobacco [...] documented as of this encounter Care Teams Bricklayer Tender Relationship Specialty Start Date End Date Harry Baird MD [facility] 1999 [place] [address] PCP - General Emergency Medicine 12/04/21 Cedric Asencio MD [address] [address] Urology 01/08/22 Armani Wiley MD [address] [place] [address] 195 [place], [place] [address] Assigned Surgical Provider 01/09/22 07/09/22 Mushtaq Arias MD [address] [place] [address] 1932 [place], [place] [address] Assigned Nephrology Provider 01/09/22 07/23/22 Anne Oglesby MD [address] [place] [address] Surgery 06/30/22 Anais Monroe NURSE NAVIGATOR 909 [place], [place] [address] Assigned Surgical Provider 07/10/22 10/22/22 Prabhu Ivory MD [address] [place] [address] Assigned Nephrology Provider 07/24/22 Anne Oglesby MD 6 [facility] 2A [place] [address] Assigned Surgical Provider 10/23/22 documented as of this encounter
--- OUTSIDE RECORDS SUMMARY | 2023-08-16 08:59 | XMS_ITS | Encounter Summary ---
Author Organization [place] Address [address] [place] [address]. [place] [address] Care Team Providers Care Photo Technologist Name Role Phone Harry Baird MD Primary Care Provider Cedric Asencio MD Unavailable Armani Wiley MD Unavailable Mushtaq Arias MD Unavailable [phone] Anne Oglesby MD Unavailable [phone] Anais Monroe NP Unavailable [phone] Prabhu Ivory MD Unavailable Anne Oglesby MD Unavailable [phone] Encounter Details Date Type Department Care Team (Late st Contact Info) Description 06/12/2022 [facility] [address] [place] [address] Daily Briceño, KRISTI Social History Tobacco [...] documented as of this encounter Care Teams Photo Technologist Relationship Specialty Start Date End Date Harry Baird MD [facility] 1999 [place] [address] PCP - General Emergency Medicine 12/04/21 Cedric Asencio MD [address] [address] Urology 01/08/22 Armani Wiley MD [address] [place] [address] 195 [place], [place] [address] Assigned Surgical Provider 01/09/22 07/09/22 Mushtaq Arias MD [address] [place] [address] 1932 [place], [place] [address] Assigned Nephrology Provider 01/09/22 07/23/22 Anne Oglesby MD [address] [place] [address] Surgery 06/30/22 Anais Monroe WHIPPER 909 [place], [place] [address] Assigned Surgical Provider 07/10/22 10/22/22 Prabhu Ivory MD [address] [place] [address] Assigned Nephrology Provider 07/24/22 Anne Oglesby MD 6 [facility] 2A [place] [address] Assigned Surgical Provider 10/23/22 documented as of this encounter
--- OUTSIDE RECORDS SUMMARY | 2023-08-16 08:59 | XMS_ITS | Encounter Summary ---
Author Organization [place] Address [address] [place] [address]. [place] [address] Care Team Providers Care Hose Builder Name Role Phone Harry Baird MD Primary Care Provider Cedric Asencio MD Unavailable [phone] Armani Wiley MD Unavailable Mushtaq Arias MD Unavailable [phone] Anne Oglesby MD Unavailable [phone] Anais Monroe NP Unavailable [phone] Prabhu Ivory MD Unavailable Anne Oglesby MD Unavailable [phone] Encounter Details Date Type Department Care Team (Late st Contact Info) Description 12/21/2021 Documentation Only [facility] Health Information Management [address] [place] [address] 180 [place] [address] Scan, Non-Provider Social History Tobacco Use Types [...] documented as of this encounter Care Teams Hose Builder Relationship Specialty Start Date End Date Harry Baird MD [facility] 1999 [place] [address] PCP - General Emergency Medicine 12/04/21 Cedric Asencio MD [address] [address] Urology 01/08/22 Armani Wiley MD 420 [facility] 195 [place], [place] [address] Assigned Surgical Provider 01/09/22 07/09/22 Mushtaq Arias MD 717 [facility] 353 [facility] 1932 [place], [place] [address] Assigned Nephrology Provider 01/09/22 07/23/22 Anne Oglesby MD 516 [facility] 2A [place], [place] [address] Surgery 06/30/22 Anais Monroe, MERCHANDISE SHOPPER 909 [place], [place] [address] Assigned Surgical Provider 07/10/22 10/22/22 Prabhu Ivory MD 717 [facility] 353 [place] [address] Assigned Nephrology Provider 07/24/22 Anne Oglesby MD 516 [facility] 2A [place] [address] Assigned Surgical Provider 10/23/22 documented as of this encounter
--- OUTSIDE RECORDS SUMMARY | 2023-08-16 08:59 | XMS_ITS | Encounter Summary ---
Author Organization [place] Address [address] [place] [address]. [place] [address] Care Team Providers Care Clerk General Name Role Phone Harry Baird MD Primary Care Provider Cedric Asencio MD Unavailable [phone] Armani Wiley MD Unavailable Mushtaq Arias MD Unavailable [phone] Anne Oglesby MD Unavailable [phone] Anais Monroe NP Unavailable [phone] Prabhu Ivory MD Unavailable Anne Oglesby MD Unavailable [phone] Encounter Details Date Type Department Care Team (Late st Contact Info) Description 02/15/2022 [facility] Clinic [address] [place] [address] Daily Briceño, KRISTI Social History Tobacco [...] Coronavirus/COVID-19? No / Unsure 01/27/2022 3:13 PM SHOT BAGGER documented as of this encounter Plan of Treatment Not on file documented as of this encounter Visit Diagnoses Not on filedocumented in this encounter Additional Health Concerns Infection Onset Date Last Indicated Resolved Time Rule Out COVID-19 11/24/2022 11/24/2022 11/25/2022 1:25 PM CDT documented as of this encounter Care Teams Clerk General Relationship Specialty Start Date End Date Harry Baird MD [facility] 1999 [place] [address] PCP - General Emergency Medicine 12/04/21 Cedric Asencio MD 305 [address] [facility] 377 [place] [address] Urology 01/08/22 Armani Wiley MD 420 [facility] 195 [place], [place] [address] Assigned Surgical Provider 01/09/22 07/09/22 Mushtaq Arias MD 717 [facility] 353 [facility] 1932 [place], [place] [address] Assigned Nephrology Provider 01/09/22 07/23/22 Anne Oglesby MD 516 [facility] 2A [place], [place] [address] Surgery 06/30/22 Anais Monroe, STAFF TRAINING AND DEVELOPMENT MANAGER 909 [place] [address] Assigned Surgical Provider 07/10/22 10/22/22 Prabhu Ivory MD [address] [address] Assigned Nephrology Provider 07/24/22 Anne Oglesby MD 516 [facility] 2A [place], [place] [address] Assigned Surgical Provider 10/23/22 documented as of this encounter
--- OUTSIDE RECORDS SUMMARY | 2023-08-16 09:00 | XMS_ITS | Encounter Summary ---
Author Organization [place] Address [address] [place] [address]. [place] [address] Care Team Providers Care Whizzer Hand Name Role Phone Bruce Villar MD Primary Care Provider [phone] Harry Baird MD Primary Care Provider Cedric Asencio MD Unavailable [phone] Armani Wiley MD Unavailable Mushtaq Arias MD Unavailable [phone] Anne Oglesby MD Unavailable [phone] Anais Monroe NP Unavailable [phone] Prabhu Ivory MD Unavailable Anne Oglesby MD Unavailable [phone] Encounter Details Date Type Department Care Team (Late st Contact Info) Description 05/24/2020 Documentation Only INTERFACED REPORT Unknown, Provider Social History Tobacco Use Types Packs/Day Years [...] documented as of this encounter Care Teams Whizzer Hand Relationship Specialty Start Date End [place] [address] [place] [address] PCP - General Internal Medicine 10/25/14 12/03/21 Harry Baird MD [facility] 2000 [place] [address] PCP - General Emergency Medicine 12/04/21 Cedric Asencio MD 305 E [facility] 377 [place] [address] Urology 01/08/22 Armani Wiley MD 420 [facility] 195 [place] [address] Assigned Surgical Provider 01/09/22 07/09/22 Mushtaq Arias MD 717 [facility] 353 [facility] 1932 [place], [place] [address] Assigned Nephrology Provider 01/09/22 07/23/22 Anne Oglesby MD 516 [facility] 2A [place] [address] Surgery 06/30/22 Anais Monroe, WORKCELL OPERATOR 909 [place], [place] [address] Assigned Surgical Provider 07/10/22 10/22/22 Prabhu Ivory MD 717 [facility] 353 [place] [address] Assigned Nephrology Provider 07/24/22 Anne Oglesby MD 516 [facility] 2A [place] [address] Assigned Surgical Provider 10/23/22 documented as of this encounter
--- OUTSIDE RECORDS SUMMARY | 2023-08-16 09:00 | XMS_ITS | Encounter Summary ---
Author Organization [facility] Address [address] [place] [address]. [place] [address] Care Team Providers Care Casting Chipper Name Role Phone Harry Baird MD Primary Care Provider Cedric Asencio MD Unavailable Armani Wiley MD Unavailable Mushtaq Arias MD Unavailable [phone] Anne Oglesby MD Unavailable [phone] Anais Monroe NP Unavailable [phone] Prabhu Ivory MD Unavailable Anne Oglesby MD Unavailable [phone] Reason for Visit * Reason Onset Date Comments Transplant Donor Referral 12/04/2021 Mansoor bedolla Kidney Donor Referral Encounter Details Date Type Department Care Team (Late st Contact Info) Description 12/04/2021 Telephone [facility] Trans[facility] Clinic [address] [place] [address] Lourdes Arroyo, exchange floor manager Donor Referral (New Living Kidney Donor Referral) Social History Tobacco Use Types Packs/Day Years [...] encounter Miscellaneous Notes * Telephone Encounter - Pastora Rolon - 12/04/2021 3:32 PM CDT SSN: [id number] Voucher: Opted-In Registered As: Standard Voucher Donor Donor Intake Start: 12/02/21 Donor Intake Complete: 12/02/21 Gender: Male Preferred Language: Mongolian Full Name: Adán Doe Is Kitchen Hand Needed: [not answered] E-mail: [email or web address] Phone: Contact Preference: [not answered] Best Contact Time: 9am - 5pm Emergency Contact: Jill Doe Emergency Contact #: [phone] Relationship to Contact: Contact is my spouse : 70 Age: 51 Address: [address] [place] [address] City: [place] State: [place] Postal Code: [id number] Height: 6'2 Weight: 212lbs BMI: 27.2 Employment Status: Employed Has PTO for donation? 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 No Education Level: Advanced Degree Marital Status: Exercise Routine: 4-6/Week Health Insurance: Yes Blood Type: Unknown Ethnicity/Race: White Donor Type: Standard Voucher Donor Prefer Remote Donation: [not answered] Physician: Dr. Harry Baird
[place], [place] Donating for Local Recipient Recipient's Name: Boone Doe Recipient's : [birth year] Recipient's Status: Patient on dialysis. How Candidate Knows Recip: Parent Of Patient Candidate communicates w/ Recip: Every Day Possible Interest In: Motivation to donate: my 17 year old son needs a kidney transplant Living Donor Pre-Screening Is In [place] Yes Will accept blood transfusions? Yes Has been diagnosed with kidney disease? No Has had a heart attack? No Has Diabetes (High BGs)? No Has had cancer? No Has had kidney stones? No Has Used Tobacco? No Has HIV? No Is Currently Incarcerated? No Is Currently Residing in [place] Yes History Misc Has Allergies? No Has had Surgeries? Yes Surgery When foreign object removed from knee 1987 Takes Medication? Yes Medication Dose Frequency Advair 1 puff daily Medical History History of High BP? Never History of CABG (bypass surgery)? No History of blood clots? Never History of coronary disease? Never History of high cholesterol or triglycerides? Never Has stents implanted? No History of chest pain during exercise? No History of chest pain at other times? No Results of climbing 2 flights of stairs? No Problem Had stress test in last year? No Has had stroke? No Has had leg bypass? No History of lung disease? Never History of COPD? Never History of TB? Never History of Pneumonia? Never Has respiratory issues? Yes - respiratory issues? asthma Has HIV? No Has Gastro Issues? Yes - gastro issues? reflux History of Gallstones? Never History of Pancreatitis? Never History of Liver Disease? Never History of Hepatitis B? Never History of Hepatitis C? Never History of bleeding problems? Never History of UTIs? No History of kidney damage? Never History of Proteinuria? Never History of Hematuria? Never History of neuro disease? Never History of seizure? Never History of lupus? Never History of paralysis? Never History of arthritis? Never History of neuropathy? Never History of depression? Never History of anxiety? Never History of documented psychiatric illness? Never Has had transfusions? No History of Obesity? No History of Fabry's Disease? No History of Sickle Cell Disease? No History of Sickle Cell Trait? No History of Sarcoidosis? No Has auto-immune disease? No Has had Physical Exam? Yes - how many years ago: 1 Has had PSA Test? No Colonoscopy? Yes - how many years ago: 1 Medical history comments? no Living Donor Family Medical History Anyone with kidney disease? Yes - which family members: father Anyone with liver disease? No Anyone with heart disease? No Anyone with coronary artery disease? No Anyone with high blood pressure? No Anyone with blood disorder? No Anyone with cancer? Yes - which family members: mother, maternal grandparents Anyone with kidney cancer? No Anyone with diabetes? No Is mother alive? No Mother's age? 72 Mother's cause of ? lung cancer Is father alive? Yes Father's age? 77 How many siblings? 3 How many adult children? 0 How many children under 18? 2 Social History Has Used Alcohol? Yes - currently uses alcohol: Yes - how much: 2/Weekly Has Abused Alcohol? No Has Used Drugs? No Has had legal issues w/ law enforcement? No Traveled over 100 miles from home in last year? Yes - Traveled Where? [place], [place], [place], [place], [place], [place], [place], [place], [place], [place], Has had suicidal thoughts or attempts in the last five years? No documented in this encounter Plan of Treatment Not on file documented as of this encounter Visit Diagnoses Not on filedocumented in this encounter Additional Health Concerns Infection Onset Date Last Indicated Resolved Time Rule Out COVID-19 11/24/2022 11/24/2022 11/25/2022 1:25 PM CDT documented as of this encounter Care Teams Casting Chipper Relationship Specialty Start Date End Date Harry Baird MD [facility] [address] [place] [address] PCP - General Emergency Medicine 12/04/21 Cedric Asencio MD [address] [facility] [address] [place] [address] Urology 01/08/22 Armani Wiley MD 420 [facility] [address] [place], [place] [address] Assigned Surgical Provider 01/09/22 07/09/22 Mushtaq Arias MD 717 [facility] 353 [facility] [address] [place], [place] [address] Assigned Nephrology Provider 01/09/22 07/23/22 Anne Oglesby MD [address] [facility] 2[address] [place], [place] [address] Surgery 06/30/22 Anais Monroe, COORDINATOR [employer] [address] [place] [address] Assigned Surgical Provider 07/10/22 10/22/22 Prabhu Ivory MD [address] [address] Assigned Nephrology Provider 07/24/22 Anne Oglesby MD [address] [address] Assigned Surgical Provider 10/23/22 documented as of this encounter
--- OUTSIDE RECORDS SUMMARY | 2023-08-16 09:00 | XMS_ITS | Encounter Summary ---
Author Organization [facility] Address [address] [place] [address] Care Team Providers Care Cell Plasterer Name Role Phone Bruce Villar MD Primary Care Provider [phone] Harry Baird MD Primary Care Provider Cedric Asencio MD Unavailable [phone] Armani Wiley MD Unavailable Mushtaq Arias MD Unavailable [phone] Anne Oglesby MD Unavailable [phone] Anais Monroe NP Unavailable [phone] Prabhu Ivory MD Unavailable Anne Oglesby MD Unavailable [phone] Encounter Details Date Type Department Care Team (Late st Contact Info) Description 06/29/2020 Documentation Only INTERFACED REPORT Unknown, Provider Social [...] documented as of this encounter Care Teams Cell Plasterer Relationship Specialty Start Date End Date Bruce Villar MD [address] [facility] [place] [address] PCP - General Internal Medicine 10/25/14 12/03/21 Harry Baird MD [facility] [address] [place] [address] PCP - General Emergency Medicine 12/04/21 Cedric Asencio MD [address] [facility] [address] [place] [address] Urology 01/08/22 Armani Wiley MD 420 [facility] 195 [place] [address] Assigned Surgical Provider 01/09/22 07/09/22 Mushtaq Arias MD 717 [facility] 353 [facility] [address] [place], [place] [address] Assigned Nephrology Provider 01/09/22 07/23/22 Anne Oglesby MD 516 [facility] [address] [place] [address] Surgery 06/30/22 Anais Monroe, MACHINE OVERHAULER [address] [place], [place] [address] Assigned Surgical Provider 07/10/22 10/22/22 Prabhu Ivory MD 717 [facility] 353 [place] [address] Assigned Nephrology Provider 07/24/22 Anne Oglesby MD 516 [facility] [address] [place] [address] Assigned Surgical Provider 10/23/22 documented as of this encounter
--- OUTSIDE RECORDS SUMMARY | 2023-08-16 09:00 | XMS_ITS | Encounter Summary ---
Author Organization [facility] Address [address] [place] [address]. [place] [address] Care Team Providers Care Exchange Specialist Name Role Phone Bruce Villar MD Primary Care Provider [phone] Harry Baird MD Primary Care Provider Cedric Asencio MD Unavailable [phone] Armani Wiley MD Unavailable Mushtaq Arias MD Unavailable [phone] Anne Oglesby MD Unavailable [phone] Anais Monroe NP Unavailable [phone] Prabhu Ivory MD Unavailable Anne Oglesby MD Unavailable [phone] Encounter Details Date Type Department Care Team (Late st Contact Info) Description 06/14/2020 Documentation Only INTERFACED REPORT Unknown, Provider Social [...] documented as of this encounter Care Teams Exchange Specialist Relationship Specialty Start Date End Date Bruce Villar MD [address] [facility] [place] [address] PCP - General Internal Medicine 10/25/14 12/03/21 Harry Baird MD [facility] [address] [place] [address] PCP - General Emergency Medicine 12/04/21 Cedric Asencio MD [address] [facility] 377 [place] [address] Urology 01/08/22 Armani Wiley MD 420 [facility] [address] [place] [address] Assigned Surgical Provider 01/09/22 07/09/22 Mushtaq Arias MD 717 [facility] 353 [facility] [address] [place], [place] [address] Assigned Nephrology Provider 01/09/22 07/23/22 Anne Oglesby MD 516 [facility] [address] [place] [address] Surgery 06/30/22 Anais Monroe, MIXING PLANT OPERATOR [address] [place], [place] [address] Assigned Surgical Provider 07/10/22 10/22/22 Prabhu Ivory MD 717 [facility] 353 [place] [address] Assigned Nephrology Provider 07/24/22 Anne Oglesby MD 516 [facility] [address] [place] [address] Assigned Surgical Provider 10/23/22 documented as of this encounter
--- OUTSIDE RECORDS SUMMARY | 2023-08-16 09:00 | XMS_ITS ---
Author Organization [facility] Address [address] [place] [address] Care Team Providers Care Potato Picker Name Role Phone Harry Baird MD Primary Care Provider Cedric Asencio MD Unavailable Anne Oglesby MD Unavailable Prabhu Ivory MD Unavailable Anne Oglesby MD Unavailable [phone] Transplant Episode Kidney Donor [facility] ([place], [place]) - [facility] Organ Donated: Right Kidney Recovered on 07/26/2022 Marked as Active Follow-up on 07/26/2022 Kidney CoordinatorDaily Briceño RN Phone: N/A Email: [email or web address] Care Team Name Role Phone Fax Email Daily Briceño RN Kidney Coordinator N/A [phone] [email or web address] Events Post-Donation Pre-Donation Admitted: 07/26/2022 Referred: 12/04/2021 Recovered: 07/26/2022 Evaluation began: 12/31/2021 Discharged: 07/27/2022 Committee: 02/03/2022
== END 2023-08-16 08:54 | disposition home or self-care (01) ==
PROVIDERS: PCP Internal Medicine; Visit Provider Internal Medicine
DX: Z00.00 Encounter for general adult medical examination without abnormal findings (principal); Z13.6 Encounter for screening for cardiovascular disorders; Z12.5 Encounter for screening for malignant neoplasm of prostate; Z13.9 Encounter for screening, unspecified
CPT/HCPCS: 80053; 80061; G0103